=== PATIENT | male | born 1935 | race African-American/Black ===

== ENCOUNTER 2017-02-22 00:49 | Emergency (ER) | payer MEDICARE, OTHER ==
[~2017-02-22 00:49] MED LIST: ACETAMINOPHEN PO; ADVAIR 250-501 EACH IH; ADVAIR 2501 DISK W/D PO; AMLODIPINE BESYL5 MG PO; ASPIRIN PO; DARVOCET-N 1001 TAB PO; DETROL LA PO; DETROL LA2 MG PO; DICLOFENAC PO; DICLOFENAC SODI50 MG PO; DIOVAN PO; DIOVAN160 MG PO; HCTZ PO; LEVAQUIN PO; MEDROL PO; NORVASC PO; NORVASC10 MG PO; PATIENT'S PHARMACY; PEPCID PO; PRAVASTATIN SOD40 MG PO; PREDNISONE10 MG/DOSE PO; SPIRIVA18 MCG; SYMBICORT INH; ZANTAC PO; ZOCOR PO
[2017-02-22 04:15] LABS: URINE SOURCE CLEAN CATCH
[2017-02-22 04:23] LABS: URINE APPEARANCE CLEAR; URINE BILIRUBIN NEG (NEG); URINE BLOOD NEG (NEG); URINE COLOR YELLOW; URINE GLUCOSE NEG (NEG); URINE KETONE NEG (NEG); URINE LEUKOCYTE ESTERASE NEG (NEG); URINE NITRATE NEG (NEG); URINE PH 7.5 (5-8); URINE PROTEIN NEG (NEG); URINE SPECIFIC GRAVITY 1.015 (1.003-1.035); URINE UROBILINOGEN 0.2 MG/DL (NEG)
[2017-02-22 04:35] LABS: CULTURE INDICATED? NO
== END 2017-02-22 08:26 | disposition home or self-care (01) ==
LOC: CED 00:49
PROVIDERS: Emergency Medicine
DX: K59.00 Constipation, unspecified (principal); J44.9 Chronic obstructive pulmonary disease, unspecified; I48.91 Unspecified atrial fibrillation; Z87.442 Personal history of urinary calculi; Z79.899 Other long term (current) drug therapy
CPT/HCPCS: 81003; 99282

== ENCOUNTER 2017-03-08 15:19 | Inpatient (IN) | payer MEDICARE, OTHER ==
--- NOTE | ~2017-03-08 | CR72 ---
[facility] A Service of [facility] RADIOLOGY TEXT RESULTS PATIENT: RICK BREWER LOCATION: [facility] 569-01 : 34 UNIT #: [id number] AGE: [address]: Sushma Ellis MD SEX: M ORDER DR: [id number] [facility] [address] [place], [place] [address] [id number] I MR#: [id number] Acc #: [id number] NAME: RICK BERWER. : 1935 SEX: M STUDY DATE/TIME: 03/08/2017 15:57 UNIT: [facility] ROOM: [facility] STUDY DESCRIPTION: CR Chest Single View Portable Attending Physician: Sushma Ellis M.D. Ordering Physician: Mani Evans M.D. Primary Care Physician: Sushma Ellis M.D. MEDICAL IMAGING REPORT This report is preliminary unless electronic signature is present EXAM Single view of the chest dated 03/08/17. COMPARISON Chest 2 views dated 11/13/16. HISTORY Cough, congestion, chest tightness today. FINDINGS Single view of the chest was obtained. Lungs are hyperinflated suggestive of emphysematous changes. Bibasilar interstitial and mild alveolar opacities are noted, slightly worse when compared to the previous study from 4 months ago, suggestive of mild alveolar and interstitial disease. Correlate with it clinically. No significant pleural effusion or pneumothorax. Borderline size heart. Pacemaker is stable in positioning. IMPRESSION 1. Redemonstrated are the hyperinflated emphysematous-appearing lungs with mild interval worsening of bibasilar atelectasis/infiltrate with some interstitial prominence. Dictated by... Lyndsey Robledo M.D. THIS IS AN ELECTRONICALLY VERIFIED REPORT Lyndsey Robledo M.D. at 03/09/2017 5:12 PM CPR/psc TD: 03/08/2017 23:00 JOB #: [id number] [facility] A Service of [facility] RADIOLOGY TEXT RESULTS PATIENT: RICK BREWER LOCATION: [facility] 569-01 : 34 UNIT #: [id number] AGE: [address]: Sushma Ellis MD SEX: M ORDER DR: MEDICAL IMAGING REPORT Page 1 of 1 COPY
--- NOTE | ~2017-03-08 | DS ---
Unit #: [id number] #: [id number] Patient: RICK BREWER [id number] [place] [id number] I MR#: [id number] NAME: RICK BREWER. ROOM: 569 Age: 81 Sex: M Admission Date: 03/08/2017 : 1935 Discharge Date: 03/13/2017 Attending Physician: Sushma Ellis M.D. Primary Care Physician: Sushma Ellis M.D. DISCHARGE SUMMARY FINAL DIAGNOSES 1. Acute on chronic hypoxic/hypercarbic respiratory failure. 2. Acute exacerbation of chronic obstructive pulmonary disease. 3. Bronchitis. 4. History of coronary artery disease. 5. Sick sinus syndrome status post pacemaker placement. 6. Hypertension. 7. Hyperlipidemia. 8. Mild thrombocytopenia. 9. History of severe bullous emphysema. DISCHARGE MEDICATIONS 1. Continue nebulizer treatment at home. 2. Prednisone tapering dose. 3. Symbicort 160/4.5 mcg 1 puff inhalation b.i.d. 4. Spiriva 1 inhalation daily. 5. Norvasc 5 mg daily. 6. MiraLAX 17 grams daily for constipation. 7. Pravastatin 40 mg daily. 8. Zithromax 500 mg daily for 4 days. CONSULTATIONS DONE DURING HOSPITALIZATION Dr. Houston Zapata from pulmonary service. DIAGNOSTIC STUDIES LAB WORKUP ON DISCHARGE: Sodium 142, potassium 4.7, chloride 35, BUN 27, creatinine 0.9, calcium 8.9. CBC shows WBC of 10.7, hemoglobin 12.8, hematocrit 40.3, platelet count 119. Blood cultures - No growth. BNP 52. Lactic acid 1.1. SIGNIFICANT RADIOLOGIC STUDIES DONE DURING HOSPITALIZATION: CTA of the chest, which showed severe emphysematous lung changes, multiple hypodense lesions in the liver, probably cysts. Diverticulosis of the colon without acute diverticulitis. Filling defect was noted but unlikely to be pulmonary embolism. Was reviewed by extruder operator vertical. Ultrasound of the lower extremities was done, and DVT was ruled out. HOSPITAL COURSE Mr. Rick Brewer is an 81-year-old male who has significant emphysema. Was admitted with shortness of breath, cough and chest tightness. The patient was admitted to [facility] to telemetry unit. Dr. Houston Zapata was consulted. The patient was started on IV antibiotics, IV Solu-Medrol and nebulizer treatments. Pulmonary embolism Unit #: [id number] #: [id number] Patient: RICK BREWER was ruled out, and DVT was ruled out. The patient is doing well and has much improved, although he does have chronic respiratory failure, on home O2. The patient is being discharged home in stable condition. DISCHARGE PHYSICAL EXAMINATION VITAL SIGNS: Blood pressure 155/73, respiratory rate 22, pulse 88, temperature 97.7, oxygen saturation 98%. RESPIRATORY: Chest has decreased air entry bilaterally. CVS: Regular rhythm. DISCHARGE INSTRUCTIONS 1. Patient is being discharged home in stable condition. 2. Medications as per med/rec. 3. Follow up with primary care provider in 1 week. 4. Follow up with Dr. Houston Zapata as scheduled. Dictated by... Sushma Ellis M.D. SANTY/guido TD: 03/16/2017 07:57 JOB #: [id number] DISCHARGE SUMMARY Page 1 of 1 X Sushma Ellis MD X DISCHARGE SUMMARY
--- NOTE | ~2017-03-08 | US84 ---
[id number] [facility] [address] [place] [address] [place], [place] [address] [id number] MR#: [id number] Acc #: [id number] NAME: RICK BREWER : 1935 SEX: M STUDY DATE/TIME: 03/09/2017 14:05 UNIT: [facility] ROOM: 569 STUDY DESCRIPTION: US LE Veins Complete Chaz Stdy Attending Physician: Sushma Ellis M.D. Ordering Physician: Ed Doctor [id number] [facility] Primary Care Physician: Sushma Ellis M.D. MEDICAL IMAGING REPORT This report is preliminary unless electronic signature is present EXAM Bilateral lower extremity venous duplex, 03/09/2017 HISTORY Bilateral lower extremity edema for 2 months. Evaluate for deep vein thrombosis. TECHNIQUE Venous ultrasound examination of both lower extremities was performed using grayscale, spectral Doppler and color flow Doppler imaging. FINDINGS The examination is negative. There is no evidence of deep venous thrombus from the groin to the lower calf bilaterally. Visualized greater saphenous veins are also patent. IMPRESSION Negative examination. No evidence of bilateral lower extremity deep venous thrombosis. Dictated by... Eric Natarajan M.D. THIS IS AN ELECTRONICALLY VERIFIED REPORT Eric Natarajan M.D. at 03/10/2017 9:56 AM Tena TD: 03/09/2017 16:51 JOB #: [id number] MEDICAL IMAGING REPORT Page 1 of 1 COPY
--- NOTE | ~2017-03-08 | HP ---
Unit #: [id number] #: [id number] Patient: RICK BREWER [id number] [address] [address] [id number] I MR#: [id number] NAME: RICK BREWER ROOM: 569 Age: 81 Sex: M Admission Date: 03/08/2017 : 1935 Attending Physician: Sushma Ellis M.D. Primary Care Physician: Sushma Ellis M.D. HISTORY AND PHYSICAL CHIEF COMPLAINT Shortness of breath. HISTORY OF PRESENT ILLNESS Mr. Brewer is a 81-year-old male who is very well known to me from previous admissions. The patient has been having shortness of breath for the last two days which was worse than his normal self. He does have oxygen at home. He does have nebulizer treatment at home. He did try to use everything but did not get better. He felt very tight in the upper chest and shoulder area although no complaint of pain. He came to the ER and is being admitted for acute COPD exacerbation. Since yesterday, he is feeling a little bit better. No nausea or vomiting, no abdominal pain. No fevers, chills, or rigors. PAST MEDICAL HISTORY 1. Hypertension. 2. Severe COPD. 3. Bullous emphysema. 4. Coronary artery disease with angioplasty to LAD. 5. Sick sinus syndrome, status post pacemaker placement. 6. Hyperlipidemia. 7. Chronic respiratory failure on home O2. 8. Left ventricular ejection fraction of 45% to 50%. 9. Borderline diabetes mellitus. 10. History of venous stasis in bilateral lower extremities. 11. Reformed smoker. PAST SURGICAL HISTORY 1. History of PCI to the LAD. 2. Pacemaker insertion. 3. Kidney stone. ALLERGIES No known drug allergies. SOCIAL HISTORY Patient lives in an apartment by himself. He has a past history of smoking but quit many years ago, almost 10 years ago. No history of alcohol abuse or drug abuse. He ambulates with assistance. FAMILY HISTORY Patient father was killed when he was young. Patient's mother of kidney failure. Unit #: [id number] #: [id number] Patient: RICK BREWER REVIEW OF SYSTEMS CONSTITUTIONAL: No history of fever, chills, or rigors. No history of headache, dizziness, or syncopal episode. CARDIOVASCULAR: No history of chest pain. He does complain of chest tightness. No complaint of palpitations or lower extremity edema. PULMONARY: He does complain of shortness of breath on exertion. Cannot ambulate without getting short of breath. He does have oxygen at home. He has nebulizer treatments at home. GASTROINTESTINAL: No history of nausea, vomiting, diarrhea, or constipation. NEUROLOGIC: No focal weakness. PHYSICAL EXAMINATION VITAL SIGNS: Blood pressure 146/93, respiratory rate 29, pulse 96, temperature 98.5, oxygen saturation is 95%. GENERAL: 81-year-old male is being evaluated in room 569. HEAD: Normocephalic. Eye movements are normal. NECK: JVD is elevated. Supple. CHEST: Fair air entry, decreased at the bases. Crackles positive. HEART: S1, S2 positive, regular rhythm. ABDOMEN: Obese. EXTREMITIES: Trace edema. NEUROLOGIC: Awake, alert, oriented x3. No focal neurologic deficit. ADMITTING DIAGNOSES 1. Mkuxr-nc-ktsvwfl hypoxic respiratory failure. 2. Acute exacerbation of chronic obstructive pulmonary disease. 3. Severe bullous emphysema. 4. Unlikely to have pulmonary embolism. 5. Hypertension. 6. Coronary artery disease. 7. Sick sinus syndrome. 8. Status post pacemaker. 9. Hyperlipidemia. 10. Reformed smoker. PLAN 1. Admit to telemetry unit. 2. Dr. Houston Zapata has been consulted. 3. IV Solu-Medrol 80 mg q.8 h. is being started. 4. IV Rocephin 1 gram q.24 h. and IV Zithromax 500 mg daily is being started. 5. Will continue oxygen to keep saturation above 94%. 6. Mini neb treatment with DuoNeb q.i.d. is being started. 7. Lovenox 40 mg subcu daily is being given. 8. Home medications have been reviewed and adjusted. 9. Bilateral lower extremity Doppler is being done. 10. CT chest reviewed, unlikely to have any clot. 11. Venous Doppler is being ordered. 12. Please refer to progress note for further orders. Dictated by Ammy Fonseca/luis Unit #: [id number] #: [id number] Patient: RICK BREWER TD: 03/09/2017 15:41 JOB #: [id number] HISTORY AND PHYSICAL Page 1 of 1 X Sushma Ellis MD HISTORY AND PHYSICAL
--- NOTE | ~2017-03-08 | EKG ---
PATIENT: RICK BREWER UNIT #: [id number] Ventricular Rate: 86 BPM Atrial Rate: 86 BPM P-R Interval: 142 ms QRS Duration: 90 ms Q-T Interval: 388 ms QTC Calculation(Bezet): 464 ms P [place]: 78 degrees Calculated R [place]: 91 degrees Calculated T [place]: 68 degrees Diagnosis Line: Normal sinus rhythm with sinus arrhythmia Diagnosis Line: Muscle tremor Diagnosis Line: Borderline ECG Diagnosis Line: When compared with ECG of 12-NOV-2016 14:32, Diagnosis Line: Questionable change in QRS axis Diagnosis Line: Confirmed by SKIP SOTELO MD ([id number]) on 03/08/2017 Diagnosis Line: 4:57:24 PM INTERPRETING MD: ASHLEIGH HARVEY
--- NOTE | ~2017-03-08 | CT16 ---
[facility] A Service of [facility] RADIOLOGY TEXT RESULTS PATIENT: RICK BREWER LOCATION: [facility] 569-01 : 34 UNIT #: [id number] AGE: [address]: Sushma Ellis MD SEX: M ORDER DR: [id number] [facility] [address] [place], [place] [address] [id number] I MR#: [id number] Acc #: [id number] NAME: RICK BREWER. : 1935 SEX: M STUDY DATE/TIME: 03/08/2017 20:40 UNIT: [facility] ROOM: [facility] STUDY DESCRIPTION: CT Angio Chest for PE Attending Physician: Sushma Ellis M.D. Ordering Physician: Hang Hogue M.D. Primary Care Physician: Sushma Ellis M.D. MEDICAL IMAGING REPORT This report is preliminary unless electronic signature is present EXAM CT angiogram chest PE protocol dated 03/08/17. COMPARISON CT angiogram chest PE protocol dated 11/13/16. HISTORY Shortness of air, dyspnea, COPD with chest tightness and upper back pain for [address] angiogram of the chest was obtained with IV contrast in the axial plane followed by sagittal and coronal reformats. This CT exam was performed with one or more of the following radiation dose reduction techniques: Automatic exposure control, adjustment of mA and/or kV according to patient size, and iterative reconstruction. FINDINGS Significant emphysematous lung changes are noted with bilateral prominent blebs and bullae particularly in the upper lobes. No superimposed patchy dense pneumonic consolidation, pleural effusion or pneumothorax is seen. There appears to be relative stability in the prominence of bilateral pulmonary arteries. There are no obvious filling defects in the main pulmonary artery, right and left pulmonary arteries and their proximal branches. In image 119 in the left lower lobe subsegmental branches, there appear to be filling defects along the posterior aspect. There is motion artifact noted at this level which limits evaluation. A filling defect is also noted within the nearby left pulmonary vein tributary. The remaining pulmonary branches appear to be relatively intact. Heart is of expected size. No significant lymphadenopathy. The left vertebral artery arises directly from the arch after the takeoff of the left subclavian artery. Atherosclerotic plaques are noted in the aorta and its branches. [facility] A Service of [facility] RADIOLOGY TEXT RESULTS PATIENT: RICK BREWER LOCATION: [facility] 569-01 : 34 UNIT #: [id number] AGE: [address]: Sushma Ellis MD SEX: M ORDER DR: Degenerative changes are noted in the thoracic spine. There is diffuse bony osteopenia. No significant abnormality is noted in the ribs. Imaged upper abdomen demonstrates hypodense lesions in the liver measuring less than a centimeter in size. The relatively larger 1 measures about 8.5 mm in the inferior right lobe, just above the level of the gallbladder. This particular lesion was not seen in the prior study from 4 months ago but there were a few other hypodense lesions noted then which are not clearly seen now. There are about 4 to 5 lesions and they are probably cysts based on statistics. There are 2 hypodense lesions in the right kidney with the relatively larger 1 in the right renal hilum measuring 2.3 x 2.8 cm. They are probably cysts. There are a few diverticula in the colon. Visualized other structures do not demonstrate any significant acute abnormality. IMPRESSION 1. There are filling defects noted along the posterior aspect of the left lower lobe subsegmental branches and this source images at series 7, image 119. This filling defect is also noted in nearby left pulmonary vein along the posterior aspect. These though could represent bullae, particularly in the pulmonary arterial branches. There is nearby motion artifact which is better seen in the lung windows. It could also be artifactual. Clinical correlation is suggested. The main, right-left pulmonary arteries are within normal limits. 2. Severe emphysematous lung changes. 3. Multiple hypodense lesions in the liver, probably cysts. 4. Diverticulosis of the colon without acute diverticulitis. 5. Hypodense incompletely evaluated right renal lesions are most suggestive of simple cysts. The relatively larger 1 measures 2.8 cm in greatest axial dimension. Dictated by... Lyndsey Robledo M.D. THIS IS AN ELECTRONICALLY VERIFIED REPORT Lyndsey Robledo M.D. at 03/09/2017 5:14 PM CPR/bd TD: 03/09/2017 08:45 JOB #: [id number] MEDICAL IMAGING REPORT Page 1 of 1 COPY
--- NOTE | ~2017-03-08 | CO ---
Unit #: [id number] #: [id number] Patient: RICK BREWER [id number] [address] [place], [place] [address] [id number] MR#: [id number] NAME: RICK BREWER. ROOM: 569 Age: 81 Sex: M Admission Date: 03/08/2017 : 1935 Attending Physician: Sushma Ellis M.D. Primary Care Physician: Sushma Ellis M.D. CONSULTATION REPORT HISTORY OF PRESENT ILLNESS Mr. Brewer is an 81-year-old black male, who presented with increasing shortness of breath over the last few hours, he had a cough, wheezing, white to green sputum production. No chest discomfort. No chest pain. In the emergency room, he was recorded as having room air O2 saturation of 93%, but he wears oxygen at home. His pulse was 86, blood pressure was 144/62, and his temperature was 97.8. He received Solu-Medrol, Rocephin, and Zithromax. He underwent a chest CT scan, which was read by the radiologist as filling defects in the posterior aspect of the left lower lobe subsegmental branches. Filling defect also noted in nearby left pulmonary vein along posterior aspect. They thought this could represent bulla, but they were not sure. There were severe emphysematous changes bilaterally. His arterial blood gases were done. Chemistries were significant for CO2 of 33. Cardiac enzymes were negative. D-dimer was 1059. White blood cell count was 8900, hematocrit was 45, platelet count 119,000. PAST MEDICAL HISTORY Significant for COPD, severe chronic respiratory failure maintained I believe on 2 L, coronary artery disease, sick sinus syndrome with pacemaker, hypertension, hyperlipidemia. HOME MEDICATIONS Listed include Spiriva, Symbicort, Norvasc, pravastatin, and albuterol. ALLERGIES None known. SOCIAL HISTORY Lives alone in [place] apartments, has somebody bringing groceries and helping clean. Reformed smoker x10 years. No alcohol or illicit drugs. FAMILY HISTORY No history of familial lung disease. REVIEW OF SYSTEMS CONSTITUTIONAL: No fevers or chills. HEENT: No rhinorrhea or nasal congestion. PULMONARY: As noted. CARDIAC: No chest pain or palpitations. GI: No nausea or vomiting. : No hematuria or dysuria. ENDOCRINE: No polyuria or polydipsia. HEMATOLOGIC: No easy bruising or bleeding. Unit #: [id number] #: [id number] Patient: RICK BREWER SKIN: No rash. NEURO: No unilateral weakness or numbness. PHYSICAL EXAMINATION VITAL SIGNS: Blood pressure is 130/70, pulse 64, respiratory rate 22, temperature 97.3. HEENT: Normocephalic and atraumatic. Pupils are equal, round, and reactive. Sclerae nonicteric. Nasal passages patent. Posterior pharynx clear. Dentures in place. NECK: Supple. Trachea midline. No cervical or supraclavicular lymphadenopathy. LUNGS: Reveal diminished breath sounds bilaterally. Mild expiratory wheeze. CARDIAC: Regular rate and rhythm. Could not appreciate murmur, rub, or gallop. ABDOMEN: Nontender. Bowel sounds present. No hepatosplenomegaly. EXTREMITIES: With stasis changes bilaterally. There is trace edema bilaterally. No cords palpated. SKIN: Warm and dry. PSYCHIATRIC: Affect, calm. DIAGNOSTIC STUDIES LABORATORY RESULTS: Reviewed. IMPRESSION 1. Acute on chronic hypoxemic hypercarbic respiratory failure. 2. Chronic obstructive pulmonary disease exacerbation. 3. Filling defects in left pulmonary artery, question pulmonary embolism. 4. Coronary artery disease. 5. Sick sinus syndrome, permanent pacemaker. 6. Hypertension. 7. Hyperlipidemia. 8. Mild thrombocytopenia. PLAN We will treat with inhaled bronchodilators, IV Solu-Medrol, cover with oral antibiotics such as doxycycline. I am not sure if he is actually had pulmonary emboli. We will check lower extremity venous Doppler studies. If positive, we will fully anticoagulate. If not, we will just keep on DVT prophylaxis. Dictated by... Rory Zapata M.D. GERA/katie TD: 03/10/2017 03:48 JOB #: [id number] Unit #: [id number] #: [id number] Patient: RICK BREWER CONSULTATION REPORT Page 1 of 1 X Rory Zapata MD CONSULTATION REPORT
[2017-03-08 16:46] LABS: POC - CKMB 5.1 ng/mL (0.0-7.9); POC - TROPONIN <0.05 ng/mL (<=0.05)
[2017-03-08 16:55] LABS: BASOPHIL% 0.5 % (0-2.5); EOSINOPHIL# 0.3 X10e3 (0-0.7); EOSINOPHIL% 3.8 % (0.0-7.0); HEMOGLOBIN 14.1 gm/dL (13.0-16.0); LYMPHOCYTE% 22.7 % (17.0-45.0); MEAN CELL VOLUME 89.1 FL (83-96); MEAN CORPUSCULAR HGB CONC 31.4 g/dL (30-36); MEAN PLATELET VOLUME 9.1 FL (6.5-11.5); MONOCYTE# 0.6 X10e3 (0-1.0); MONOCYTE% 6.5 % (3.0-12.0); NEUTROPHIL# 5.9 X10e3 (1.5-7.1); NEUTROPHIL% 66.5 % (40-75); PLATELET COUNT 119 X10e3 (140-420); RED BLOOD COUNT 5.05 X10e (3.90-5.60); RED CELL DISTRIBUTION WIDTH 16.7 % (11.0-15.5); WHITE BLOOD COUNT 8.9 X10e3 (4.0-10.5)
[2017-03-08 16:56] LABS: DIFF IND NO
[2017-03-08 17:05] LABS: PARTIAL THROMBOPLASTIN TIME 29.5 SECONDS (23.5-31.3); PROTHROMBIN TIME (PATIENT) 10.7 SECONDS (9.6-11.5)
[2017-03-08 17:15] LABS: ALBUMIN SERUM 4.6 g/dL (3.5-5.0); BILIRUBIN, DIRECT 0.1 mg/dL (0.0-0.2); BILIRUBIN,INDIRECT 0.9 mg/dL (0.0-0.9); BUN/CREATININE RATIO 32.5; CALCIUM SERUM 9.4 mg/dL (8.4-10.2); CREATININE SERUM 0.8 mg/dL (0.6-1.4); GLOM FILT RATE Estimated 96.5 mL/min (>60); POTASSIUM 4.1 mmol/L (3.5-5.1); PROTEIN TOTAL SERUM 7.5 g/dL (6.0-8.3)
[2017-03-12 05:56] LABS: HEMATOCRIT 40.3 % (38.0-50.0); HEMOGLOBIN 12.8 gm/dL (13.0-16.0); MEAN CELL VOLUME 88.1 FL (83-96); MEAN CORPUSCULAR HGB CONC 31.7 g/dL (30-36); MEAN PLATELET VOLUME 9.5 FL (6.5-11.5); RED BLOOD COUNT 4.57 X10e (3.90-5.60); RED CELL DISTRIBUTION WIDTH 16.4 % (11.0-15.5); WHITE BLOOD COUNT 10.7 X10e3 (4.0-10.5)
[2017-03-12 06:44] LABS: CALCIUM SERUM 8.9 mg/dL (8.4-10.2); CREATININE SERUM 0.9 mg/dL (0.6-1.4); GLOM FILT RATE Estimated 91.9 mL/min (>60); POTASSIUM 4.7 mmol/L (3.5-5.1)
[2017-03-13] MEDS ORDERED: ZITHROMAX500 MG PO (11:25)
[2017-03-13] MEDS ORDERED: PREDNISONE PO (11:26)
[2017-03-13] MEDS ORDERED: COMBIVENT MININEB INH (13:35)
[2017-03-13] MEDS ORDERED: MIRALAX17 GM PO (13:37)
== END 2017-03-13 15:55 | disposition home or self-care (01) | DRG 189 ==
LOC: CED 15:19 → C5C 19:00 → CEDOF 19:00 → CED 19:27 → CEDOF 19:27 → C5C 20:52
PROVIDERS: Emergency Medicine; Hospitalist
PROC: B30TZZZ Plain Radiography of Left Pulmonary Artery (ICD-10-PCS; principal; 2017-03-08)
PROC: B30SZZZ Plain Radiography of Right Pulmonary Artery (ICD-10-PCS; 2017-03-08)
DX: J96.21 Acute and chronic respiratory failure with hypoxia (principal); D69.6 Thrombocytopenia, unspecified; J44.1 Chronic obstructive pulmonary disease with (acute) exacerbation; Z99.81 Dependence on supplemental oxygen; J96.22 Acute and chronic respiratory failure with hypercapnia; J40 Bronchitis, not specified as acute or chronic; I25.10 Atherosclerotic heart disease of native coronary artery without angina pectoris; Z98.61 Coronary angioplasty status; I10 Essential (primary) hypertension; Z87.891 Personal history of nicotine dependence; E78.5 Hyperlipidemia, unspecified; K57.90 Diverticulosis of intestine, part unspecified, without perforation or abscess without bleeding; Z87.442 Personal history of urinary calculi; Z84.1 Family history of disorders of kidney and ureter; Z95.0 Presence of cardiac pacemaker
CPT/HCPCS: 36415; 71010; 71275; 80048; 80076; 82553; 83605; 83880; 84484; 85025; 85027; 85379; 85610; 85730; 87040; 93005; 93970; 94640; 94760; 96374; 99285; J0456; J0696; J1650; J2920; J2930; Q9967

== ENCOUNTER 2017-06-04 19:25 | Emergency (ER) | payer MEDICARE, MEDICAID ==
[~2017-06-04] VITALS: Ht 177.8 cm; Wt 63.5 kg
[~2017-06-04 19:25] MED LIST changes: +COMBIVENT MININEB INH; +MIRALAX17 GM PO; +PREDNISONE PO; +ZITHROMAX500 MG PO
== END 2017-06-04 21:32 | disposition home or self-care (01) ==
LOC: CED 19:25
DX: K62.89 Other specified diseases of anus and rectum (principal); E78.5 Hyperlipidemia, unspecified; J44.9 Chronic obstructive pulmonary disease, unspecified; I11.0 Hypertensive heart disease with heart failure; I50.9 Heart failure, unspecified; E11.9 Type 2 diabetes mellitus without complications; I25.10 Atherosclerotic heart disease of native coronary artery without angina pectoris; Z79.899 Other long term (current) drug therapy
CPT/HCPCS: 99283